=== PATIENT | female | born 1945 | race Caucasian/White ===

== ENCOUNTER 2020-08-27 18:39 | Emergency (ER) | payer OTHER ==
[~2020-08-27] VITALS: Ht 152.4 cm; Wt 57.5 kg
[2020-08-27 18:57] VITALS: BP 135/79
[2020-08-27 19:22] LABS: ABSOLUTE BASOPHILS 0.1 thou/uL (0.0-0.2); ABSOLUTE EOSINOPHILS 0.1 thou/uL (0.0-0.7); ABSOLUTE LYMPHOCYTES 1.6 thou/uL (0.8-5.3); ABSOLUTE MONOCYTES 1.1 thou/uL (0.0-1.2); ABSOLUTE NEUTROPHILS 13.7 thou/uL (1.6-8.1); BASOPHILS 0.6 %; EOSINOPHILS 0.4 %; HEMATOCRIT 32.7 % (37.0-47.0); HEMOGLOBIN 10.5 gm/dL (12.0-15.0); LYMPHOCYTES 9.6 %; MCH 29.8 pg (26.0-34.0); MCHC 32.1 g/dL (28.0-37.0); MCV 92.6 fL (80.0-100.0); MONOCYTES 6.7 %; MPV 8.8 fl. (7.2-11.1); NUCLEATED RBCS 0 /100WBC; PLATELET COUNT* 393 thou/uL (150-400); POLYS 82.7 %; RBC 3.53 mil/uL (4.20-5.00); RDW-CV 14.4 % (10.5-14.5); WBC 16.6 thou/uL (4.0-11.0)
[2020-08-27 19:32] LABS: ANION GAP 7 mmol/L (7-16); BUN 10 mg/dL (7-18); CALCIUM 9.3 mg/dL (8.5-10.1); CHLORIDE 104 mmol/L (98-107); CO2 32 mmol/L (21-32); CREATININE 0.9 mg/dL (0.6-1.3); GLUCOSE 105 mg/dL (70-99); POTASSIUM 3.9 mmol/L (3.5-5.1); SODIUM 143 mmol/L (136-145)
[2020-08-27 19:47] LABS: ALKALINE PHOSPHATASE 99 U/L (46-116); CK-MB MASS < 0.5 ng/mL (<0.5-3.6); NT-PRO BRAIN NAT PEPTIDE 444 pg/mL (<300); SGOT 19 U/L (15-37); SGPT 16 U/L (30-65); TOTAL BILIRUBIN 0.4 mg/dL (<0.1-1.0); TOTAL PROTEIN 7.5 g/dL (6.4-8.2)
[2020-08-27 19:55] LABS: APTT 24.5 Seconds (25.0-31.3); PROTIME 10.7 Seconds (9.20-11.50)
[2020-08-27] MEDS ORDERED: KLOR-CON M2020 MEQ PO (19:58)
[2020-08-27] MEDS ORDERED: COZAAR 25 MG TA25 M1 PO (19:58)
[2020-08-27] MEDS ORDERED: CARTIA XT180 M1 PO (19:59)
[2020-08-27] MEDS ORDERED: FUROSEMIDE 40 M40 MG PO (19:59)
[2020-08-27] MEDS ORDERED: KEPPRA1000 MG PO (20:00)
[2020-08-27] MEDS ORDERED: SERTRALINE HCL100 MG PO (20:00)
[2020-08-27] MEDS ORDERED: PROAIR HFA8.5 GM INH (20:01)
[2020-08-27 20:16] LABS: BE 3.3 mmol/L (-2 to +3); PCO2 46.1 mmHg (35.0-45.0); PO2 83.5 mmHg (75.0-100.0); pH 7.411 (7.340-7.450)
[2020-08-27 20:22] LABS: URINE BILIRUBIN NEGATIVE (Negative); URINE BLOOD NEGATIVE (Negative); URINE CLARITY CLEAR; URINE COLOR YELLOW; URINE GLUCOSE-RANDOM NEGATIVE (Negative); URINE KETONES NEGATIVE (Negative); URINE LEUKOCYTES-REFLEX TRACE (Negative); URINE NITRITE-REFLEX NEGATIVE (Negative); URINE PROTEIN NEGATIVE (Negative); URINE UROBILINOGEN 0.2 E.U./dl (0.2-1.0)
[2020-08-27 20:41] LABS: HYALINE CASTS 4-10 Moderate /LPF (None Seen)
[2020-08-27 20:42] LABS: BACTERIA-REFLEX None Seen /HPF (None Seen); CRYSTALS None Seen /LPF (None Seen); MUCUS None Seen strn/LPF (None Seen); SQUAMOUS 4-10 Moderate /LPF (0-3); URINE RBC None Seen /HPF (0-2); URINE WBC-REFLEX 0-5 Rare /HPF (0-5)
[2020-08-27] MEDS ORDERED: CEFDINIR300 MG PO ×2 (22:15→22:16)
[2020-08-27 22:30] VITALS: BP 139/73
--- NOTE | 2020-08-28 09:17 | EKG ---
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: : 1945 Requested By: Luis Saravia Order Number: [id number] MD: Michael Quiroz Measurements Intervals [place] Rate: 92 P: 69 FL: 153 QRS: -5 QRSD: 112 T: 55 QT: 378 QTc: 468 Interpretive Statements Sinus rhythm Borderline intraventricular conduction delay No previous ECG available for comparison Electronically Signed On 08-28-2020 9:17:26 CDT by Michael Quiroz [email or web address] <ELECTRONICALLY SIGNED> By: Michael Quiroz MD, [facility] [id number] 05 05 Michael Quiroz MD, [facility] /EPI
== END 2020-08-27 22:31 | disposition home or self-care (01) ==
LOC: M.ERS 18:39 → M.TBA-ER 22:06 → M.ERS 22:06
PROVIDERS: Emergency Medicine; Family Medicine
DX: J18.9 Pneumonia, unspecified organism (principal); Z20.822 Contact with and (suspected) exposure to COVID-19; I11.0 Hypertensive heart disease with heart failure; I50.9 Heart failure, unspecified; J44.9 Chronic obstructive pulmonary disease, unspecified; Z88.0 Allergy status to penicillin

== ENCOUNTER 2020-09-19 08:44 | Inpatient (IN) | payer OTHER ==
[~2020-09-19] VITALS: Ht 152.4 cm; Wt 57.2 kg
--- NOTE | ~2020-09-19 | CON ---
[facility] [address] [place] [address] CONSULTATION Name: KEERTHISRIDHAR N Room: [address] IN ..#: [id number] Admission: 09/19/20 Attend Phys: Woody Valdes MD Discharge: Date of : 43 Report #: [id number] THIS REPORT FOR: cc: Tyrone Merlos MD, Matthew D MD Khosla, Parveen K. MD ~ DOC #: [id number] Lázaro Vega MD DATE OF CONSULTATION: 09/20/2020 HISTORY OF PRESENT ILLNESS: This is a 75-year-old female patient who was evaluated by me for seizure. The patient was seen yesterday as well as the patient was seen today. Initially, I was not able to reach the patient's daughter, but subsequently I was able to reach the patient's daughter. The history is that this patient had an aneurysm surgery several years ago. Neither the patient nor the daughter remembers how many years ago was that, but it was a long time ago. The aneurysm had ruptured and she had a seizure. She has been on seizure medications for a long time. Presently, she is on Keppra. Dose has been adjusted. At one time it was 1000 mg p.o. b.i.d. and then they decreased it to 1000 mg in the morning and 750 mg at night and then they increased it back to 1000 mg p.o. b.i.d. Keppra has not caused any side effects. She was seen in [facility] about a year ago for recurrence of any aneurysm and they did the workup and they did not find any reoccurrence. She is having some seizures. Seizures are of about 1 month apart, but during the seizure, she becomes restless. She starts rocking her legs and then she becomes uncontrollable. It does not look like she has any tonic or clonic activity during that time. Keppra has not produced any side effects. She did have some depression at one time, but there has not been any question of pseudoseizure. REVIEW OF SYSTEMS: Positive for aneurysm ruptures in the past. She has a history of CHF, COPD, hypertension, depression. She used to smoke and drink alcohol, but she has stopped doing that according to the daughter. She has poor memory, but she is still able to live at home with the daughter. Somebody is always with her. A 14-point review of system was carried out and she is not complaining of any new eye, ENT, cardiac, respiratory, GI, , musculoskeletal, constitutional dermatological, hematological, psychiatric, throat, allergic symptoms associated with present symptomatology. PAST MEDICAL HISTORY: Positive for seizures and aneurysm rupture. FAMILY HISTORY: Unremarkable. SOCIAL HISTORY: She used to smoke and drink alcohol, [place] [address] CONSULTATION Name: KEERTHISRIDHAR [place] Room: [address]#: [id number] Admission: 09/19/20 Attend Phys: Woody Valdes MD Discharge: Date of : 43 Report #: [id number] one of them now. PHYSICAL EXAMINATION: NEUROLOGIC: The patient's examination indicates she is alert. She is responsive. Her memory is poor, but that is her baseline. She can tell me that she had surgery, but could not tell me the exact date. Cranial nerve examination, I could not tell about the visual field, but otherwise looks unremarkable. She moves symmetrically and the position looks intact. She does not appear to have any cerebellar sign. There is no meningeal sign in this patient. Her hearing and vision looks adequate. She has no thyroid mass. VITAL SIGNS: Blood pressure is 135/75, respirations 16, pulse is 84, temperature is 98.1. CARDIAC: Unremarkable. RESPIRATORY: No respiratory difficulty was noted. DIAGNOSTIC IMAGING: CT shows chronic changes, but no acute changes. Cervical spine shows no fracture or subluxation of the cervical spine. IMPRESSION AND PLAN: It is possible this patient is having some breakthrough seizure. It is very difficult to confirm. Her EEG is pending. We will look at it. My suggestion was to go on Depakote, which will help with behavior problem as well as seizure, but after having a long talk with the patient's daughter, she declined Depakote. She wants me to adjust the dose to 1500 mg p.o. b.i.d. and she understands all the options. We will do that. She will continue to follow up with her neurologist as an outpatient and will defer further workup and evaluation to them. Thank you very much for this referral. More than 50 minutes of time was spent taking care of this patient today and majority were spent counseling and coordinating. Lázaro Vega MD PK/VIS By: [id number] Vega MD /nt
--- NOTE | ~2020-09-19 | EMS ---
[address] [address] EMS Patient Care Report Name: SRIDHAR PENDLETON Room: [place] [address] ADM [place] [facility]#: [id number] Admission: 09/19/20 Attend Phys: Woody Valdes MD Discharge: Date of : 43 Report #: [id number] THIS REPORT FOR: //name// Report Transmitted: 09/19/2020 11:01 EMS Care Summary [facility] Incident [id number] @ 09/19/2020 07:35 Incident Location [address] [place] [address] Patient SRIDHAR PENDLETON Female, 75 Years 1945 Patient Address [id number] [place] [address] Patient History Chronic Obstructive Pulmonary Disease (COPD),Diabetes,Hypertension (HTN),Stroke/CVA, Patient Allergies No known allergies, Patient Medications Potassium, Levetiracetam, Sertraline, Losartan, Diltiazem, Cartia, Chief Complaint "She was shaking on the bed." Disposition Transported No Lights/[place] Dispatch Reason Convulsions/Seizure Transported To [facility] Narrative Dispatch: Med 1 response requested to Aurora Zhang on a female having a seizure. Med 1 copied the call and began our response to the scene. We arrived on scene without incident. [address] [place] [address] EMS Patient Care Report Name: SRIDHAR PENDLETON [place] Room: [place] [address] ADM IN M.R.#: [id number] Admission: 09/19/20 Attend Phys: Woody Valdes MD Discharge: Date of : 43 Report #: [id number] Chief complaint: We found a female sitting up right in a chair. Patient was alert to self but appeared to be postictal. History of present illness: Patient suffers from seizures due to an unknown cause. She takes Keppra for them and has been taking it as prescribed by her DR. Family found the patient on a chair shaking back and fourth which is how her seizures present. Her oxygen saturation dropped and family became concerned. When EMS arrived the patient appeared to be postictal as she was only alert to self. Family advised she is usually fully alert and able to answer them. Family denied any medication changes or increased stress at home. She hasn't been sick recently. Assessment: Alert to self but appeared postictal. Airway open and patent with clear lung sounds, breathing non labored. Able to speak however few words at a time. Skin noted to be pink, warm and dry. Pulse present and regular at the radial size. No outward deformities noted. Patient did not bite her tongue or urinate during seizure. Secondary assessment noted in tab Reason for transport: Patient had a seizure and family would like her evaluated at [facility]. Treatment: ALS assessment, vitals,Oxygen via NC at her normal 3 lpm, ECG showing NS, IV access, transport Summary: Patient was assisted to stand from her chair. She was assisted to the cot to have a seat where she was covered and secured. She was taken to the ambulance and placed inside. Vitals were monitored. IV access obtained. She was continued on her normal oxygen. We transported non emergent. Radio report called in to the ER via med radio. Upon arrival to the ER patient was taken inside and to ER 4 where she was moved while report was given. Med 1 transferred care and cleared to return to service. Initial Vitals @07:48P: 98,BP: 180/90,Pain: 0/10,GCS: 15,Temp: 99.1F,Glucose: 85,SpO2: 100, @08:11P: 88,R: 18,BP: 184/90,Pain: 0/10,GCS: 15,SpO2: 98,Revised Trauma: 12, @08:20P: 86,R: 18,BP: 178/109,Pain: 0/10,GCS: 15,SpO2: 100,Revised Trauma: 12, @08:30P: 86,R: 20,BP: 174/106,Pain: 0/10,GCS: 15,SpO2: 100,Revised Trauma: 12, @08:35P: 85,R: 20,BP: 176/82,Pain: 0/10,GCS: 15,SpO2: 100,Revised Trauma: 12, Assessments @07:55MENTAL:Confused,Person Oriented,SKIN:HEENT:LUNG SOUNDS:ABDOMEN:PELVIS//GI:EXTREMITIES:PULSE:NEURO:@08:23MENTAL:Person Oriented,Event Oriented,Time Oriented,Place Oriented,SKIN:HEENT:[place] [address] EMS Patient Care Report Name: SRIDHAR PENDLETON Room: [address] IN M.R.#: [id number] Admission: 09/19/20 Attend Phys: Woody Valdes MD Discharge: Date of : 43 Report #: [id number] SOUNDS:ABDOMEN:PELVIS//GI:EXTREMITIES:PULSE:NEURO: Impression Seizures Procedures @07:49ALS AssessmentResponse: UnchangedSucceeded@08:00Lactated Ringers 10cc (20 ga) Site: Antecubital-RightResponse: UnchangedSucceeded@08:00Surgical Mask on PatientResponse: Unchanged@08:1112-Lead ECGResponse: UnchangedSucceeded@08:2012-Lead ECGResponse: UnchangedSucceeded Timeline 07:30,Call Received 07:35,Dispatched 07:36,En Route 07:46,On Scene 07:47,At Patient 07:48,BP: 180/90 M,PULSE: 98,RR: R,SPO2: 100 Ox,ETCO2: ,B,PAIN: 0,GCS: 15, 07:49,ALS Assessment,Response: UnchangedSucceeded, 08:00,Lactated Ringers 10cc 20 ga Site: Antecubital-Right,Response: UnchangedSucceeded, 08:00,Surgical Mask on Patient,Response: Unchanged 08:09,Depart Scene 08:11,12-Lead ECG,Response: UnchangedSucceeded, 08:11,BP: 184/90 M,PULSE: 88,RR: 18 R,SPO2: 98 Ox,ETCO2: ,BG: ,PAIN: 0,GCS: 15, 08:20,12-Lead ECG,Response: UnchangedSucceeded, 08:20,BP: 178/109 M,PULSE: 86,RR: 18 R,SPO2: 100 Ox,ETCO2: ,BG: ,PAIN: 0,GCS: 15, 08:30,BP: 174/106 M,PULSE: 86,RR: 20 R,SPO2: 100 Ox,ETCO2: ,BG: ,PAIN: 0,GCS: 15, 08:35,BP: 176/82 M,PULSE: 85,RR: 20 R,SPO2: 100 Ox,ETCO2: ,BG: ,PAIN: 0,GCS: 15, 08:42,At Destination 09:18,Call Closed Disclaimer v1.1 Copyright 2020 [employer] This EMS Care Summary contains data elements from the applicable legal record (which may be displayed differently). It is designed to provide pertinent information for the following purposes: continuity of care, clinical quality, and state data reporting. The complete legal record is available to ED staff and administrators of the receiving hospital in [employer] Patient Tracker. All data is provided "as is."
--- NOTE | ~2020-09-19 | EEG ---
[place] [address] EEG STUDY REPORT Name: SRIDHAR PENDLETON [place] Room: [address]#: [id number] Admission: 09/19/20 Attend Phys: Woody Valdes MD Discharge: 09/21/20 Date of : 43 Report #: [id number] THIS REPORT FOR: cc: Tyrone Merlos MD, Matthew D MD Khosla, Parveen K. MD ~ DOC #: [id number] Lázaro Vega MD DATE OF SERVICE: 09/20/2020 This patient's EEG was done to evaluate for seizure. EEG was done by placing the electrode by standard 10-20 system of electrode placement. Both referential and sequential montages were used for recording. Background activity in this patient's EEG is about 8 Hz and 30 microvolt. It is asymmetrical as expected from the craniotomy, but this is also poorly formed. Photic stimulation is unremarkable. This patient became drowsy and that is associated with bilateral slowing and vertex sharp waves. No spike and slow wave activity was noticed. IMPRESSION: This is an abnormal EEG because it is disorganized and poorly formed. That is a nonspecific abnormality, which can occur with dementia, encephalopathy, effect of psychotropic medications. Clinical correlation is recommended. MD ARIELLA Villagomez/SAIDA By: [id number] Vega MD /maci
[~2020-09-19 08:44] MED LIST: CARTIA XT180 M1 PO; CEFDINIR300 MG PO; COZAAR 25 MG TA25 M1 PO; FUROSEMIDE 40 M40 MG PO; KEPPRA1000 MG PO; KLOR-CON M2020 MEQ PO; PROAIR HFA8.5 GM INH; SERTRALINE HCL100 MG PO
[2020-09-19 08:47] VITALS: BP 132/96
[2020-09-19 09:17] LABS: URINE BILIRUBIN NEGATIVE (Negative); URINE BLOOD NEGATIVE (Negative); URINE CLARITY CLEAR; URINE COLOR YELLOW; URINE GLUCOSE-RANDOM NEGATIVE (Negative); URINE KETONES NEGATIVE (Negative); URINE LEUKOCYTES-REFLEX NEGATIVE (Negative); URINE NITRITE-REFLEX NEGATIVE (Negative); URINE PROTEIN NEGATIVE (Negative); URINE SPECIFIC GRAVITY 1.015 (1.005-1.030); URINE UROBILINOGEN 0.2 E.U./dl (0.2-1.0)
[2020-09-19 09:54] LABS: ABSOLUTE BASOPHILS 0.1 thou/uL (0.0-0.2); ABSOLUTE EOSINOPHILS 0.4 thou/uL (0.0-0.7); ABSOLUTE LYMPHOCYTES 1.2 thou/uL (0.8-5.3); ABSOLUTE NEUTROPHILS 5.2 thou/uL (1.6-8.1); EOSINOPHILS 5.1 %; HEMATOCRIT 31.8 % (37.0-47.0); HEMOGLOBIN 10.1 gm/dL (12.0-15.0); LYMPHOCYTES 15.3 %; MCH 29.4 pg (26.0-34.0); MCHC 31.6 g/dL (28.0-37.0); MCV 92.9 fL (80.0-100.0); MONOCYTES 12.7 %; NUCLEATED RBCS 0 /100WBC; PLATELET COUNT* 230 thou/uL (150-400); POLYS 65.9 %; RBC 3.42 mil/uL (4.20-5.00); RDW-CV 14.5 % (10.5-14.5); WBC 7.8 thou/uL (4.0-11.0)
[2020-09-19 10:03] LABS: CALCIUM 9.2 mg/dL (8.5-10.1); CREATININE 0.8 mg/dL (0.6-1.3); POTASSIUM 4.1 mmol/L (3.5-5.1)
[2020-09-19 10:07] LABS: ALBUMIN 3.2 g/dL (3.4-5.0); TOTAL BILIRUBIN 0.3 mg/dL (<0.1-1.0); TOTAL PROTEIN 7.1 g/dL (6.4-8.2)
--- NOTE | 2020-09-19 12:47 | EKG ---
[place] [address] ELECTROCARDIOGRAM REPORT Name: SRIDHAR PENDLETON Room: [place] [address] ADM IN M.R.#: [id number] Admission: 09/19/20 Attend Phys: Woody Valdes, Discharge: Date of : 43 Date of Service: 09/19/20 0852 Report #: [id number] THIS REPORT FOR: //name// [facility] ED Test Date: 2020-09-19 Test Time: 08:52:23 Pat Name: SRIDHAR PENDLETON Department: Room: [facility] Gender: F Test Preparation Tutor: GEOVANY : 1945 Requested By: Luis Saravia Order Number: [id number] MD: Tino Bourgeois Measurements Intervals [place] Rate: 89 P: 78 PA: 154 QRS: 74 QRSD: 117 T: 46 QT: 373 QTc: 454 Interpretive Statements Sinus rhythm Nonspecific intraventricular conduction delay Borderline low voltage, extremity leads Compared to ECG 08/27/2020 19:06:45 No significant changes Electronically Signed On 09-19-2020 12:47:41 CDT by Tino Bourgeois [email or web address] <ELECTRONICALLY SIGNED> By: Tino Bourgeois MD, [facility] 09/19/20 1247 0852 0852 Tino Bourgeois MD, [facility] /EPI
[2020-09-19 14:30] VITALS: BP 143/80
[2020-09-19 15:00] VITALS: BP 140/75
[2020-09-19 16:58] VITALS: BP 147/81
[2020-09-19 18:04] VITALS: BP 180/67
[2020-09-19 19:24] VITALS: BP 145/81
[2020-09-20 08:40] VITALS: BP 135/75
[2020-09-20 16:00] VITALS: BP 131/87
[2020-09-20 19:48] VITALS: BP 130/82
[2020-09-21 05:13] LABS: CALCIUM 9.2 mg/dL (8.5-10.1); CREATININE 0.8 mg/dL (0.6-1.3); MAGNESIUM 2.3 mg/dL (1.8-2.4); POTASSIUM 3.5 mmol/L (3.5-5.1)
[2020-09-21 07:45] VITALS: BP 133/67
[2020-09-21] MEDS ORDERED: KEPPRA 500 MG500 M1 PO (11:27)
[2020-09-21 12:08] VITALS: BP 133/67
[2020-09-21 12:50] VITALS: BP 133/67
[2020-09-21 15:37] VITALS: BP 124/69
[2020-09-21 16:34] VITALS: BP 133/67
[2020-09-21 17:53] VITALS: BP 133/67
== END 2020-09-21 17:50 | disposition home health service (06) | DRG 101 ==
LOC: M.ERS 08:44 → M.ORTHSURG 11:39 → M.TBA-ER 11:39 → M.ORTHSURG 14:33
PROVIDERS: Family Medicine; ADMIT Internal Medicine; ATTEND Internal Medicine
DX: G40.909 Epilepsy, unspecified, not intractable, without status epilepticus (principal); Z20.822 Contact with and (suspected) exposure to COVID-19; J44.9 Chronic obstructive pulmonary disease, unspecified; I50.9 Heart failure, unspecified; F32.9 Major depressive disorder, single episode, unspecified; I11.0 Hypertensive heart disease with heart failure; D64.9 Anemia, unspecified; E88.09 Other disorders of plasma-protein metabolism, not elsewhere classified; Z79.899 Other long term (current) drug therapy; Z79.51 Long term (current) use of inhaled steroids

== ENCOUNTER 2020-10-22 09:14 | Inpatient (IN) | payer OTHER ==
[~2020-10-22] VITALS: Ht 152.4 cm; Wt 52.2 kg
--- NOTE | ~2020-10-22 | EMS ---
[place] [address] EMS Patient Care Report Name: OBDULIA PENDLETON Room: [facility]#: [id number] Admission: 10/22/20 Attend Phys: Discharge: Date of : 43 Report #: [id number] THIS REPORT FOR: //name// Report Transmitted: 10/22/2020 10:38 EMS Care Summary [facility] Incident [id number] @ 10/22/2020 08:09 Incident Location [address] [place] [address] Patient OBDULIA PENDLETON Female, 75 Years 1945 Patient Address [address] [place] [address] Patient History Asthma,TIA, Patient Allergies Penicillin allergy, Patient Medications Albuterol, Chief Complaint Shortness of Breath Disposition Transported No Lights/[place] Dispatch Reason Breathing Problem Transported To [facility] Narrative Dispatch: [facility] was dispatched to a local address for a patient who was having difficulty breathing. [facility] responded from the station and [place] [address] EMS Patient Care Report Name: OBDULIA PENDLETON Room: [facility]#: [id number] Admission: 10/22/20 Attend Phys: Discharge: Date of : 43 Report #: [id number] Chief Complaint: Upon arrival to the patient, (Obdulia De Leon) she was found standing in the living room. Obdulia stated she was having trouble breathing, and had audible wheezing lung sounds. No injuries were noted. History of Present Illness: Obdulia advised that over the last couple days she had increased difficulty breathing. She stated that she has had this problem happen before, and it is typically her asthma that gets worse over a few days. Obdulia stated that she woke up this morning and the breathing was the worst it had been over the last couple days. Obdulia stated that she had not taken her albuterol breathing treatment this morning, and that she just felt like she could not get a deep breath in. Assessment: Primary Assessment - Obdulia had a patent airway, but her respiratory effort was noted to be labored with audible wheezing lung sounds. Her skin was pink, warm, and dry. Radial pulses were present. Secondary Assessment - See assessment section for further information. Reason For Transport: Obdulia required further treatment and monitoring at the hospital. Treatments: Assessment was performed. Vital signs were obtained. Albuterol and Atrovent nebulizer treatment was administered as documented in the flowchart of this report. 5-Lead and 12-Lead EKGs were obtained showing a sinus rhythm without ectopy or elevation. IV access was administered as documented in the flowchart of this report. Solu-Medrol was administered as documented in the flowchart of this report. Summary of Call: Obdulia was transferred to the cot and all seat belts were applied. She was taken to the ambulance and loaded without incident. Non-emergency transport began. During transport, Obdulia's respiratory effort was significantly improved and the wheezing significantly diminished. No other changes in patient condition were noted. Report was called to the receiving hospital. Upon arrival to the [facility], Obdulia was taken into the hospital room and transferred to the bed. Report was given to the receiving staff, signatures were obtained, and patient care was transferred. Initial Vitals @08:40P: 102,R: 21,BP: 169/73,Pain: 0/10,GCS: 15,Glucose: 105,EtCO2: 44,SpO2: [place] [address] EMS Patient Care Report Name: OBDULIA PENDLETON Room: [facility]#: [id number] Admission: 10/22/20 Attend Phys: Discharge: Date of : 43 Report #: [id number],Revised Trauma: 12, @08:55P: 100,R: 20,BP: 172/99,GCS: 15,EtCO2: 47,SpO2: 99,Revised Trauma: 12, @09:10P: 101,R: 22,BP: 174/96,GCS: 15,EtCO2: 40,SpO2: 97,Revised Trauma: 12, @09:25P: 103,R: 18,BP: 168/90,GCS: 15,EtCO2: 39,SpO2: 94,Revised Trauma: 12, @08:25P: 100,R: 22,BP: 168/90,Pain: 0/10,GCS: 15,SpO2: 89,Revised Trauma: 12, Assessments @08:25MENTAL:Time Oriented,Person Oriented,Place Oriented,Event Oriented,SKIN:HEENT:Eyes: Left Pupil: 4-mm,Eyes: Right Pupil: 4-mm,LUNG SOUNDS:ABDOMEN:PELVIS//GI:EXTREMITIES:Capillary Refill: Right Upper: < 2 Sec,PULSE:Radial: 2+ Normal,NEURO:@08:25MENTAL:Person Oriented,Event Oriented,Place Oriented,Time Oriented,SKIN:HEENT:LUNG SOUNDS:ABDOMEN:PELVIS//GI:EXTREMITIES:PULSE:NEURO: Impression Asthma Procedures @08:25ALS AssessmentResponse: UnchangedSucceeded@08:27Albuterol - 2.5 Milligrams (mg) - NebulizedResponse: Improved@08:27Atrovent - 0.5 Milligrams (mg) - NebulizedResponse: Improved@08:30Normal Saline (.9% NaCl) 10cc (20 ga) Site: Antecubital-RightResponse: UnchangedSucceeded@08:46Solu-Medrol - 125 Milligrams (mg) - Intravenous (IV)Response: Improved@08:27Oxygen FlowRate: 8 Device: Nebulizer Response: ImprovedSucceeded@08:35Oxygen FlowRate: 2 Device: CO2 Nasal Cannula Response: ImprovedSucceeded Timeline 08:07,Call Received 08:09,Dispatched 08:11,En Route 08:22,On Scene 08:24,At Patient 08:25,ALS Assessment,Response: UnchangedSucceeded, 08:25,BP: 168/90 M,PULSE: 100,RR: 22 R,SPO2: 89 Ox,ETCO2: ,BG: ,PAIN: 0,GCS: 15, 08:27,Albuterol - 2.5 Milligrams (mg) - Nebulized,Response: Improved 08:27,Atrovent - 0.5 Milligrams (mg) - Nebulized,Response: Improved 08:27,Oxygen FlowRate: 8 Device: Nebulizer Response: ImprovedSucceeded, 08:30,Normal Saline (.9% NaCl) 10cc 20 ga Site: Antecubital-Right,Response: UnchangedSucceeded, 08:35,Oxygen FlowRate: 2 Device: CO2 Nasal Cannula Response: ImprovedSucceeded, 08:40,BP: 169/73 M,PULSE: 102,RR: 21 R,SPO2: 99 Ox,ETCO2: 44 ,B,PAIN: 0,GCS: 15, 08:46,Solu-Medrol - 125 Milligrams (mg) - Intravenous (IV),Response: Improved 08:55,BP: 172/99 M,PULSE: 100,RR: 20 R,SPO2: 99 Ox,ETCO2: 47 ,BG: ,PAIN: ,GCS: 15, [place] [address] EMS Patient Care Report Name: OBDULIA PENDLETON [place] Room: [facility]#: [id number] Admission: 10/22/20 Attend Phys: Discharge: Date of : 43 Report #: [id number] 08:57,Depart Scene 09:10,BP: 174/96 M,PULSE: 101,RR: 22 R,SPO2: 97 Ox,ETCO2: 40 ,BG: ,PAIN: ,GCS: 15, 09:25,BP: 168/90 M,PULSE: 103,RR: 18 R,SPO2: 94 Ox,ETCO2: 39 ,BG: ,PAIN: ,GCS: 15, 09:39,At Destination 10:23,Call Closed Disclaimer v1.1 Copyright 2020 [employer] This EMS Care Summary contains data elements from the applicable legal record (which may be displayed differently). It is designed to provide pertinent information for the following purposes: continuity of care, clinical quality, and state data reporting. The complete legal record is available to ED staff and administrators of the receiving hospital in [employer]'s Patient Tracker. All data is provided "as is."
--- NOTE | ~2020-10-22 | PROC ---
[address] [address] PROCEDURE REPORT Name: SRIDHAR PENDLETON Room: [address] IN M.R.#: [id number] Admission: 10/22/20 Attend Phys: Scot Turner MD Discharge: 11/01/20 Date of : 43 Report #: [id number] THIS REPORT FOR: cc: Tyrone Merlos MD, Matthew D MD [facility],Medical Records Staff ~ For GI report, please see the Provation report in Perceptive 7 content. By: 1012Medical Records Staff [facility] /MANUEL
[~2020-10-22 09:14] MED LIST changes: +KEPPRA 500 MG500 M1 PO
[2020-10-22 09:20] VITALS: BP 163/93
[2020-10-22 10:26] LABS: ABSOLUTE EOSINOPHILS 0.5 thou/uL (0.0-0.7); ABSOLUTE LYMPHOCYTES 1.3 thou/uL (0.8-5.3); ABSOLUTE MONOCYTES 0.6 thou/uL (0.0-1.2); ABSOLUTE NEUTROPHILS 5.5 thou/uL (1.6-8.1); BASOPHILS 0.6 %; EOSINOPHILS 5.8 %; HEMATOCRIT 32.5 % (37.0-47.0); HEMOGLOBIN 10.5 gm/dL (12.0-15.0); LYMPHOCYTES 16.7 %; MCH 29.5 pg (26.0-34.0); MCHC 32.4 g/dL (28.0-37.0); MCV 91.1 fL (80.0-100.0); MPV 9.6 fl. (7.2-11.1); NUCLEATED RBCS 0 /100WBC; PLATELET COUNT* 308 thou/uL (150-400); POLYS 69.9 %; RBC 3.57 mil/uL (4.20-5.00); RDW-CV 14.2 % (10.5-14.5); WBC 7.9 thou/uL (4.0-11.0)
[2020-10-22 10:35] LABS: CALCIUM 8.8 mg/dL (8.5-10.1); CREATININE 0.8 mg/dL (0.6-1.3); POTASSIUM 3.9 mmol/L (3.5-5.1)
[2020-10-22 10:45] LABS: ALBUMIN 3.6 g/dL (3.4-5.0); TOTAL BILIRUBIN 0.2 mg/dL (<0.1-1.0); TOTAL PROTEIN 7.9 g/dL (6.4-8.2)
[2020-10-22 13:52] VITALS: BP 148/85
[2020-10-22 14:15] VITALS: BP 132/77
[2020-10-22 19:50] VITALS: BP 142/77
[2020-10-23 01:10] VITALS: BP 137/86
[2020-10-23 05:16] LABS: ABSOLUTE LYMPHOCYTES 1.3 thou/uL (0.8-5.3); ABSOLUTE MONOCYTES 0.7 thou/uL (0.0-1.2); ABSOLUTE NEUTROPHILS 2.9 thou/uL (1.6-8.1); BASOPHILS 0.2 %; HEMATOCRIT 33.2 % (37.0-47.0); HEMOGLOBIN 10.9 gm/dL (12.0-15.0); LYMPHOCYTES 25.7 %; MCH 29.4 pg (26.0-34.0); MCHC 32.7 g/dL (28.0-37.0); MCV 89.9 fL (80.0-100.0); MONOCYTES 14.8 %; MPV 9.1 fl. (7.2-11.1); NUCLEATED RBCS 0 /100WBC; PLATELET COUNT* 304 thou/uL (150-400); POLYS 59.3 %; RBC 3.69 mil/uL (4.20-5.00); RDW-CV 14.5 % (10.5-14.5); WBC 4.9 thou/uL (4.0-11.0)
[2020-10-23 05:35] LABS: CALCIUM 9.1 mg/dL (8.5-10.1); POTASSIUM 3.8 mmol/L (3.5-5.1)
[2020-10-23 05:49] VITALS: BP 128/75
[2020-10-23 08:13] VITALS: BP 111/92
[2020-10-23] MEDS ORDERED: IPRAT-ALBUT 0.5-3 ML INH (10:59)
[2020-10-23] MEDS ORDERED: STIOLTO RESPIMAT4 GM INH (11:02)
[2020-10-23] MEDS ORDERED: FLONASE 0.05%50 MCG NASAL (11:14)
[2020-10-23] MEDS ORDERED: SUPER THERAVIT1 EACH PO (11:24)
[2020-10-23] MEDS ORDERED: ADVIL200 M1 PO (11:25)
[2020-10-23 11:51] VITALS: BP 134/72
--- NOTE | 2020-10-23 12:01 | EKG ---
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: : 1945 Requested By: Jesus Stapleton Order Number: [id number] MD: Ravinder Whelan Measurements Intervals [place] Rate: 102 P: 79 DC: 163 QRS: 73 QRSD: 109 T: 42 QT: 362 QTc: 472 Interpretive Statements Sinus tachycardia Compared to ECG 09/19/2020 08:52:23 Sinus rhythm no longer present Intraventricular conduction delay no longer present Electronically Signed On 10-23-2020 12:01:20 CDT by Ravinder hWelan [email or web address] <ELECTRONICALLY SIGNED> By: Ravinder Whelan MD, [facility] 10/23/20 1201 2 2 Ravinder Whelan MD, [facility] /EPI
--- NOTE | 2020-10-23 15:43 | 2DMMODE ---
[place] [address] 2 D/M-MODE ECHOCARDIOGRAM Name: SRIDHAR PENDLETON Room: [address] IN [facility]#: [id number] Admission: 10/22/20 Attend Phys: Scot Turner, Discharge: Date of : 43 Date of Service: 10/23/20 1543 Report #: [id number] THIS REPORT FOR: cc: Tyrone Merlos MD, Matthew D MD Liston, Michael J. MD [facility] ~ APPROVED REPORT Study performed: 10/23/2020 13:53:27 EXAM: Comprehensive 2D, Doppler, and color-flow Echocardiogram Patient Location: In-Patient Room #: [facility] Status: routine BSA: 1.48 HR: 96 bpm BP: 134/72 mmHg Rhythm: NSR Other Information Study Quality: Good Indications Congestive Heart Failure 2D Dimensions IVSd: 9.22 (7-11mm) LVOT Diam: 19.22 (18-24mm) LVDd: 43.07 mm PWd: 8.05 (7-11mm) Ascending Ao: 31.75 (22-36mm) LVDs: 28.52 (25-40mm) Aortic Root: 32.37 mm Volumes Left Atrial Volume (Systole) LA ESV Index: 34.20 mL/m2 Aortic Valve AoV Peak Ced.: 1.79 m/s AO Peak Gr.: 12.78 mmHg LVOT Max P.46 mmHg AO Mean Gr.: 6.61 mmHg LVOT Mean P.40 mmHg LVOT Max V: 1.27 m/s AO V2 VTI: 31.79 cm LVOT Mean V: 0.85 m/s STEPHANIA (VTI): 2.32 cm2 LVOT V1 VTI: 25.44 [place] [address] 2 D/M-MODE ECHOCARDIOGRAM Name: SRIDHAR PENDLETON Room: [address] IN ..#: [id number] Admission: 10/22/20 Attend Phys: Scot Turner, Discharge: Date of : 43 Date of Service: 10/23/20 1543 Report #: [id number] Mitral Valve E/A Ratio: 0.69 MV Decel. Time: 128.46 ms MV E Max Ced.: 0.87 m/s MV PHT: 37.25 ms MVA (PHT): 5.91 cm2 TDI E/Lateral E': 9.67 E/Medial E': 9.67 Medial E' Ced.: 0.09 m/s Lateral E' Ced.: 0.09 m/s Pulmonary Valve PV Peak Ced.: 1.32 m/s PV Peak Gr.: 6.94 mmHg Tricuspid Valve RAP Estimate: 5.00 mmHg TR Peak Gr.: 29.45 mmHg RVSP: 34.00 mmHg PA Pressure: 34.00 mmHg Left Ventricle The left ventricle is normal size. There is normal LV segmental wall motion. There is normal left ventricular wall thickness. Left ventricular systolic function is normal. LVEF is 55-60%. Grade I - abnormal relaxation pattern. Right Ventricle The right ventricle is normal size. The right ventricular systolic function is normal. Atria The left atrium size is normal. The right atrium size is normal. Aortic Valve The aortic valve is normal in structure. No aortic regurgitation is present. There is no aortic valvular stenosis. Mitral Valve The mitral valve is normal in structure. There is no mitral valve regurgitation noted. No evidence of mitral valve stenosis. Tricuspid Valve The tricuspid valve is normal in structure. Mild tricuspid regurgitation. [place] [address] 2 D/M-MODE ECHOCARDIOGRAM Name: KEERTHISRIDHAR N Room: [address]#: [id number] Admission: 10/22/20 Attend Phys: Scot Turner, Discharge: Date of : 43 Date of Service: 10/23/20 1543 Report #: [id number] Pulmonic Valve The pulmonary valve is normal in structure. Mild pulmonic regurgitation. Great Vessels The aortic root is normal in size. IVC is normal in size and collapses >50% with inspiration. Pericardium There is no pericardial effusion. <Conclusion> The left ventricle is normal size. There is normal left ventricular wall thickness. Left ventricular systolic function is normal. LVEF is 55-60%. Grade I - abnormal relaxation pattern. Mild tricuspid regurgitation. Mild pulmonary hypertension. IVC is normal in size and collapses >50% with inspiration. <ELECTRONICALLY SIGNED> By: Ravinder Whelan MD, FACC 10/23/20 1543 1543 1543 Ravinder Whelan MD, FACC /INF
[2020-10-23 16:34] VITALS: BP 134/78
[2020-10-23 21:00] VITALS: BP 147/55
[2020-10-24] VITALS (7 sets, daily range): BP systolic 95–157; BP diastolic 66–86
[2020-10-24 04:13] LABS: HEMATOCRIT 30.5 % (37.0-47.0); HEMOGLOBIN 10.2 gm/dL (12.0-15.0); MCH 29.8 pg (26.0-34.0); MCHC 33.3 g/dL (28.0-37.0); MCV 89.4 fL (80.0-100.0); MPV 9.1 fl. (7.2-11.1); RBC 3.41 mil/uL (4.20-5.00); RDW-CV 14.4 % (10.5-14.5); WBC 9.5 thou/uL (4.0-11.0)
[2020-10-24 04:33] LABS: CALCIUM 9.2 mg/dL (8.5-10.1); CREATININE 0.8 mg/dL (0.6-1.3); POTASSIUM 4.1 mmol/L (3.5-5.1)
[2020-10-24 11:06] LABS: BE 7.6 mmol/L (-2 to +3); PO2 75.5 mmHg (75.0-100.0); pH 7.373 (7.340-7.450)
[2020-10-24 11:21] LABS: PCO2 60.8 mmHg (35.0-45.0)
[2020-10-25 04:12] LABS: HEMATOCRIT 32.4 % (37.0-47.0); HEMOGLOBIN 10.5 gm/dL (12.0-15.0); MCH 29.2 pg (26.0-34.0); MCHC 32.5 g/dL (28.0-37.0); MCV 89.9 fL (80.0-100.0); MPV 10.3 fl. (7.2-11.1); RBC 3.6 mil/uL (4.20-5.00); RDW-CV 14.5 % (10.5-14.5); WBC 9.6 thou/uL (4.0-11.0)
[2020-10-25 04:25] LABS: CALCIUM 8.9 mg/dL (8.5-10.1); CREATININE 0.8 mg/dL (0.6-1.3)
[2020-10-25 05:08] VITALS: BP 158/94
[2020-10-25 08:51] VITALS: BP 158/94
[2020-10-25 09:00] VITALS: BP 127/81
[2020-10-25 12:41] VITALS: BP 148/90
[2020-10-25 19:26] LABS: APTT 25.1 Seconds (25.0-31.3); PROTIME 10.3 Seconds (9.20-11.50)
[2020-10-25 19:50] VITALS: BP 142/78
[2020-10-25 23:34] VITALS: BP 138/88
[2020-10-26 03:39] VITALS: BP 140/73
[2020-10-26 05:09] LABS: HEMATOCRIT 29.7 % (37.0-47.0); HEMOGLOBIN 9.8 gm/dL (12.0-15.0); MCH 29.3 pg (26.0-34.0); MCHC 32.9 g/dL (28.0-37.0); MCV 89.2 fL (80.0-100.0); MPV 9.5 fl. (7.2-11.1); NUCLEATED RBCS 0 /100WBC; PLATELET COUNT* 266 thou/uL (150-400); RBC 3.33 mil/uL (4.20-5.00); RDW-CV 14.4 % (10.5-14.5); WBC 6.1 thou/uL (4.0-11.0)
[2020-10-26 05:26] LABS: ALKALINE PHOSPHATASE 84 U/L (46-116); ANION GAP < 0 mmol/L (7-16); BUN 20 mg/dL (7-18); CALCIUM 8.7 mg/dL (8.5-10.1); CHLORIDE 100 mmol/L (98-107); CO2 41 mmol/L (21-32); CREATININE 0.8 mg/dL (0.6-1.3); GLUCOSE 87 mg/dL (70-99); POTASSIUM 3.7 mmol/L (3.5-5.1); SGOT 22 U/L (15-37); SGPT 28 U/L (30-65); SODIUM 139 mmol/L (136-145); TOTAL BILIRUBIN 0.2 mg/dL (<0.1-1.0); TOTAL PROTEIN 6.9 g/dL (6.4-8.2)
[2020-10-26 06:10] LABS: ABSOLUTE LYMPHOCYTES 1.6 thou/uL (0.8-5.3); ABSOLUTE MONOCYTES 1.4 thou/uL (0.0-1.2); ABSOLUTE NEUTROPHILS 3.1 thou/uL (1.6-8.1); MYELOCYTES 1 %
[2020-10-26 06:11] LABS: ANISOCYTOSIS 1+; OVALOCYTES 1+; PLATELET ESTIMATE ADEQUATE; POIKILOCYTOSIS 1+
[2020-10-26 09:00] VITALS: BP 136/78
[2020-10-26 12:00] VITALS: BP 128/67
[2020-10-26 16:24] VITALS: BP 133/84
[2020-10-26 20:00] VITALS: BP 163/82
[2020-10-26 23:58] VITALS: BP 143/82
[2020-10-27 04:37] VITALS: BP 142/86
[2020-10-27 04:42] LABS: CALCIUM 9.1 mg/dL (8.5-10.1); CREATININE 0.8 mg/dL (0.6-1.3)
[2020-10-27 04:55] LABS: ABSOLUTE LYMPHOCYTES 1.3 thou/uL (0.8-5.3); ABSOLUTE MONOCYTES 0.7 thou/uL (0.0-1.2); ABSOLUTE NEUTROPHILS 5.1 thou/uL (1.6-8.1); BASOPHILS 0.4 %; HEMATOCRIT 31.8 % (37.0-47.0); HEMOGLOBIN 10.5 gm/dL (12.0-15.0); LYMPHOCYTES 18.3 %; MCH 29.3 pg (26.0-34.0); MCHC 32.9 g/dL (28.0-37.0); MCV 89.1 fL (80.0-100.0); MONOCYTES 9.8 %; MPV 9.9 fl. (7.2-11.1); NUCLEATED RBCS 0 /100WBC; PLATELET COUNT* 280 thou/uL (150-400); POLYS 71.5 %; RBC 3.57 mil/uL (4.20-5.00); WBC 7.1 thou/uL (4.0-11.0)
[2020-10-27 08:00] VITALS: BP 172/101
[2020-10-27 12:00] VITALS: BP 145/92
[2020-10-27 19:29] VITALS: BP 165/79
[2020-10-27 20:00] VITALS: BP 140/87
[2020-10-28] VITALS (7 sets, daily range): BP systolic 115–175; BP diastolic 56–102
[2020-10-28 06:07] LABS: ABSOLUTE LYMPHOCYTES 1.1 thou/uL (0.8-5.3); ABSOLUTE MONOCYTES 0.6 thou/uL (0.0-1.2); ABSOLUTE NEUTROPHILS 7.7 thou/uL (1.6-8.1); BASOPHILS 0.4 %; HEMATOCRIT 34.1 % (37.0-47.0); HEMOGLOBIN 11.2 gm/dL (12.0-15.0); LYMPHOCYTES 11.2 %; MCH 29.1 pg (26.0-34.0); MCHC 32.9 g/dL (28.0-37.0); MCV 88.5 fL (80.0-100.0); MONOCYTES 6.8 %; MPV 9.7 fl. (7.2-11.1); NUCLEATED RBCS 0 /100WBC; PLATELET COUNT* 302 thou/uL (150-400); POLYS 81.6 %; RBC 3.85 mil/uL (4.20-5.00); RDW-CV 14.2 % (10.5-14.5); WBC 9.4 thou/uL (4.0-11.0)
[2020-10-28 06:13] LABS: CALCIUM 9.4 mg/dL (8.5-10.1); CREATININE 0.7 mg/dL (0.6-1.3); POTASSIUM 4.3 mmol/L (3.5-5.1)
[2020-10-29] VITALS (21 sets, daily range): BP systolic 84–129; BP diastolic 45–74
[2020-10-29 05:14] LABS: ABSOLUTE LYMPHOCYTES 0.9 thou/uL (0.8-5.3); ABSOLUTE NEUTROPHILS 7.8 thou/uL (1.6-8.1); BASOPHILS 0.3 %; HEMATOCRIT 30.2 % (37.0-47.0); HEMOGLOBIN 10.1 gm/dL (12.0-15.0); LYMPHOCYTES 9.2 %; MCH 29.2 pg (26.0-34.0); MCHC 33.4 g/dL (28.0-37.0); MCV 87.6 fL (80.0-100.0); MONOCYTES 10.6 %; NUCLEATED RBCS 0 /100WBC; PLATELET COUNT* 270 thou/uL (150-400); POLYS 79.9 %; RBC 3.45 mil/uL (4.20-5.00); RDW-CV 14.4 % (10.5-14.5); WBC 9.7 thou/uL (4.0-11.0)
[2020-10-29 05:42] LABS: ALBUMIN 2.8 g/dL (3.4-5.0); ALKALINE PHOSPHATASE 79 U/L (46-116); ANION GAP 1 mmol/L (7-16); BUN 20 mg/dL (7-18); CALCIUM 8.5 mg/dL (8.5-10.1); CHLORIDE 98 mmol/L (98-107); CO2 38 mmol/L (21-32); CREATININE 0.9 mg/dL (0.6-1.3); GLUCOSE 110 mg/dL (70-99); MAGNESIUM 2.3 mg/dL (1.8-2.4); SGOT 22 U/L (15-37); SGPT 30 U/L (30-65); SODIUM 137 mmol/L (136-145); TOTAL BILIRUBIN < 0.1 mg/dL (<0.1-1.0); TOTAL PROTEIN 6.1 g/dL (6.4-8.2)
[2020-10-29 07:27] LABS: BE 6.9 mmol/L (-2 to +3); PO2 79.3 mmHg (75.0-100.0); pH 7.419 (7.340-7.450)
[2020-10-29 07:29] LABS: PCO2 51.5 mmHg (35.0-45.0)
--- NOTE | 2020-10-29 13:59 | EKG ---
[place] [address] ELECTROCARDIOGRAM REPORT Name: SRIDHAR PENDLETON Room: [address] IN .R.#: [id number] Admission: 10/22/20 Attend Phys: Scot Turner, Discharge: Date of : 43 Date of Service: 10/29/20617 Report #: [id number] THIS REPORT FOR: //name// [facility] Test Date: 2020-10-29 Test Time: 06:18:08 Pat Name: SRIDHRA SHETHMIGNON Department: Room: [address] Gender: F [employer]: PASCALE : 1945 Requested By: Scot Turner Order Number: [id number] Reading MD: Michael Quiroz Measurements Intervals [place] Rate: 134 P: 79 CA: 125 QRS: 185 QRSD: 128 T: 37 QT: 311 QTc: 465 Interpretive Statements Sinus tachycardia Nonspecific intraventricular conduction delay Possible lateral septal scar Artifact in lead(s) II,III,aVR,aVL,aVF and baseline wander in lead(s) I,II,aVR,aVL,aVF,V1,V2,V3,V4,V6 Compared to ECG 10/22/2020 09:23:1 Intraventricular conduction delay persists Artifact is noted Electronically Signed On 10-29-2020 13:59:20 CDT by Michael Quiroz [email or web address] <ELECTRONICALLY SIGNED> By: Michael Quiroz MD, [facility] 10/29/20 1359 7 7 Michael Quiroz MD, [facility] /EPI
--- NOTE | 2020-10-29 15:22 | CON ---
[address] [address] CONSULTATION Name: KEERTHISRIDHAR N Room: [address] IN M.R.#: [id number] Admission: 10/22/20 Attend Phys: Scot Turner MD Discharge: Date of : 43 Report #: [id number] THIS REPORT FOR: cc: Tyrone Merlos MD, Matthew D MD Pervez,Nimesh LEAL ~ DOC #: [id number] Nimesh Gomez MD DATE OF CONSULTATION: 10/25/2020 REQUESTING PHYSICIAN: Dr. Scot Turner. INDICATION FOR CONSULTATION: Acute on chronic hypercarbic respiratory failure with increasing oxygen needs. HISTORY OF PRESENT ILLNESS: This is a 75-year-old female with past medical history includes a history of COPD. The patient uses oxygen at home, has not been on a CPAP or BiPAP at home. At this time, the patient was initially admitted on 10/22, presentation was with increase in shortness of breath. The patient has also had a cough, only clear sputum. No chest pain, does not have upper respiratory complaints. No increase in swelling of lower extremities and no calf pain. She has had disturbed sleep at night. Recently, she says normally she sleeps well, but still has daytime sleepiness. The patient reports that since compared with when she came into the hospital, she is feeling better; however, compared with yesterday, there has been an increase in oxygen needs were down to 3 liters nasal cannula yesterday, oxygen needs have increased again to 6 liters now. REVIEW OF SYSTEMS: The patient answers to the negative for 12 questions for review of systems, except as mentioned above. PAST MEDICAL HISTORY: COPD, on long-term oxygen, usually at night, so that she has also been using it during the day. Recently, hypertension, depression, seizures. There is recent echo, which shows a normal left ventricular ejection fraction without elevation in right heart pressures. SOCIAL HISTORY: An extensive history of smoking, has discontinued. No known history of heavy alcohol use or illegal drug use. CURRENT MEDICATIONS: List in [employer] reviewed. HOME MEDICATIONS: List [place] [employer] [address] CONSULTATION Name: SRIDHAR PENDLETON Room: [address]#: [id number] Admission: 10/22/20 Attend Phys: Scot Turner MD Discharge: Date of : 43 Report #: [id number] ALLERGIES: SHE IS REPORTED TO BE ALLERGIC TO PENICILLIN; however, she tolerates cephalosporins without problems. FAMILY HISTORY: The patient's family is reported not to be vaccinated for COVID-19; however, it is reported that other families members in the past have had COVID and therefore decided not to get vaccinated. PHYSICAL EXAMINATION: GENERAL: She is alert, awake and oriented. She is tachycardic. VITAL SIGNS: Heart rate is 110, blood pressure 148/93, saturating 91-92%. She is on 6 liters nasal cannula. Respiratory rate was in the low 20s, afebrile with a temperature of 36.9. HEENT: Normocephalic and atraumatic. Pupils are equal and reactive. There is no throat erythema, narrow airway, or Mallampati 3. NECK: Does not show raised JVP, asymmetry, mass or lymph nodes. CHEST: Symmetrical expansion on inspection and palpation. On auscultation, breath sounds are decreased. Expirations are prolonged. There are significant expiratory wheezes bilaterally. HEART: Regular. There is no murmur. ABDOMEN: Soft and nontender. LOWER EXTREMITIES: Show no edema. There is no calf tenderness. SKIN: Dry and intact. NEUROLOGIC: Moves all extremities bilaterally equally and spontaneously with no focal deficit identified. LABORATORY DATA: The patient's arterial blood gas from yesterday, which shows acute on chronic hypercarbic respiratory failure in [facility] reviewed. Lab work in [facility] also reviewed. The patient has had a chest x-ray which showed no new findings. There are chronic changes. These are reviewed. The patient had a CTA chest performed in August. Both the films and report are reviewed. ASSESSMENT AND PLAN: 1. Acute on chronic hypoxemic and hypercarbic respiratory failure. Arterial blood gas shows a chronic component in addition to acute. We will go ahead and put her on a BiPAP while asleep. Recommend arranging a Trilogy before discharge. The patient is agreeable to use BiPAP. The primary etiology of the patient's respiratory failure appears to be bronchospasm. 2. Chronic obstructive pulmonary disease exacerbation. She is still bronchospastic. I would significantly go up on the steroid dose, which appears to be primary therapy needed at this time. We will also continue with nebulized bronchodilators as well as budesonide as currently prescribed. The patient has pulmonary infiltrates on the CT chest performed in August. I do not see any obvious infiltrates on the chest x-rays now. I do intend to do a CT chest to [address] [address] CONSULTATION Name: SRIDHAR PENDLETON Room: [address] IN M.R.#: [id number] Admission: 10/22/20 Attend Phys: Scot Turner MD Discharge: Date of : 43 Report #: [id number] evaluate this further. I would do a D-dimer first and then decide as to whether to do this with or without IV dye. 3. DVT prophylaxis. 4. GI prophylaxis. Continue Protonix. 5. Hyperglycemia. We will order an insulin sliding scale while she is on high dose steroids. Thanks for this consultation. MD GINO Puckett/GUERRERO <ELECTRONICALLY SIGNED> By: Nimesh Gomez MD 10/29/20 1522 1705 [id number] Gomez MD /nt
--- NOTE | 2020-10-29 17:26 | CON ---
[address] [address] CONSULTATION Name: KEERTHISRIDHAR N Room: [address] IN M.R.#: [id number] Admission: 10/22/20 Attend Phys: Scot Turner MD Discharge: Date of : 43 Report #: [id number] THIS REPORT FOR: cc: Tyrone Merols MD, Matthew D MD Namin, Farid M. MD ~ DOC #: [id number] cc: MD Josselyn Khan [facility] DATE OF CONSULTATION: 10/29/2020 PCP: Tyrone Merlos MD Please note at the time of this dictation, the patient was seen and physically examined by myself. REASON FOR CONSULTATION: Abnormal chest CT, questionable achalasia. HISTORY OF PRESENT ILLNESS: This is a 75-year-old female who presented to the Emergency Room with cough and shortness of breath. She was seen then at that time, she thought she and caught a bug. She has a longstanding history of COPD, which she is on continuous oxygen of 2-3 liters all the time. The patient denies any difficulty swallowing. She states she did have some vomiting over the past week or so, but denies any difficulty with solids or liquids at this time. She is unable to recall for me if she has ever had an EGD or a colonoscopy done in the past. She denies any nausea, any vomiting, any abdominal discomfort. She states her bowels move daily, soft and formed without any evidence of any bright red blood or melena. ALLERGIES: PENICILLIN. MEDICATIONS: From home include potassium chloride, Cozaar, diltiazem, Lasix, sertraline and ProAir. PAST MEDICAL HISTORY: Hypertension, COPD, depression, CHF, seizures. PAST SURGICAL HISTORY: Negative. FAMILY HISTORY: Noncontributory. SOCIAL HISTORY: Denies any alcohol, tobacco, or illegal drug use. REVIEW OF SYSTEMS: A 12-point review of systems is essentially negative except what [place] [address] CONSULTATION Name: SRIDHAR PENDLETON Room: [address] IN [facility]#: [id number] Admission: 10/22/20 Attend Phys: Scot Turner MD Discharge: Date of : 43 Report #: [id number] PHYSICAL EXAMINATION: VITAL SIGNS: Temperature 37.2, pulse 82, respirations 17, blood pressure 129/62. HEART: Regular rate and rhythm. LUNGS: Diminished with a few expiratory wheezes bilaterally. ABDOMEN: Soft, positive bowel sounds in all 4 quadrants with no masses or tenderness noted. LABORATORY DATA: Hemoglobin is 10.1, white count 9.7, platelets 270. BUN is 20, GFR 61. LFTs are completely normal. Abdominal x-ray is normal. CT of the chest done on 10/26/2020 showed diffuse fluid distention of the entire esophagus. IMPRESSION: 1. Abnormal CT fluid-filled esophagus noted on 10/26/2020. 2. Acute respiratory failure. 3. Anemia, chronic. 4. Seizures. PLAN: 1. Barium swallow. 2. Depending on above results, may consider an EGD once her pulmonary status has improved. 3. Await findings of the above. Thank you for allowing us to participate in this patient's care. Please do not hesitate to call with any questions regarding this consult. MD JOESPH Dalton/BUBBA <ELECTRONICALLY SIGNED> By: Juliana James MD 10/29/20 1726 0749 [id number] James MD /nt
[2020-10-30 04:00] VITALS: BP 155/79
[2020-10-30 04:33] LABS: HEMATOCRIT 30.7 % (37.0-47.0); HEMOGLOBIN 10.2 gm/dL (12.0-15.0); MCH 29.6 pg (26.0-34.0); MCHC 33.2 g/dL (28.0-37.0); MCV 89.1 fL (80.0-100.0); MPV 9.3 fl. (7.2-11.1); NUCLEATED RBCS 0 /100WBC; PLATELET COUNT* 258 thou/uL (150-400); RBC 3.45 mil/uL (4.20-5.00); RDW-CV 14.1 % (10.5-14.5); WBC 6.6 thou/uL (4.0-11.0)
[2020-10-30 04:46] LABS: PREALBUMIN 19.9 mg/dL (18.0-35.7)
[2020-10-30 05:03] LABS: ALBUMIN 2.8 g/dL (3.4-5.0); CALCIUM 8.4 mg/dL (8.5-10.1); CREATININE 0.8 mg/dL (0.6-1.3); POTASSIUM 3.9 mmol/L (3.5-5.1); TOTAL BILIRUBIN 0.2 mg/dL (<0.1-1.0); TOTAL PROTEIN 6.5 g/dL (6.4-8.2)
[2020-10-30 05:44] LABS: ABSOLUTE MONOCYTES 0.2 thou/uL (0.0-1.2); ABSOLUTE NEUTROPHILS 5.4 thou/uL (1.6-8.1); PLATELET ESTIMATE ADEQUATE
[2020-10-30 05:45] LABS: ANISOCYTOSIS 1+; POIKILOCYTOSIS 1+
[2020-10-30 08:00] VITALS: BP 133/74
[2020-10-30 12:00] VITALS: BP 123/58
[2020-10-30 16:00] VITALS: BP 119/73
[2020-10-30 20:00] VITALS: BP 127/74
[2020-10-30 23:36] VITALS: BP 144/73
[2020-10-31 03:27] VITALS: BP 134/59
[2020-10-31 08:00] VITALS: BP 144/77
[2020-10-31 12:03] VITALS: BP 132/66
[2020-10-31 16:11] VITALS: BP 137/73
[2020-10-31] MEDS ORDERED: PROTONIX40 M2 PO (16:22)
[2020-10-31] MEDS ORDERED: REGLAN 10 MG TA10 MG PO (16:22)
[2020-10-31 19:45] VITALS: BP 144/83
[2020-11-01] VITALS: BP 127/70
[2020-11-01 04:43] LABS: ABSOLUTE LYMPHOCYTES 0.4 thou/uL (0.8-5.3); ABSOLUTE MONOCYTES 0.8 thou/uL (0.0-1.2); ABSOLUTE NEUTROPHILS 10.9 thou/uL (1.6-8.1); BASOPHILS 0.3 %; HEMATOCRIT 28.5 % (37.0-47.0); HEMOGLOBIN 9.5 gm/dL (12.0-15.0); LYMPHOCYTES 3.6 %; MCH 29.9 pg (26.0-34.0); MCHC 33.4 g/dL (28.0-37.0); MCV 89.7 fL (80.0-100.0); MONOCYTES 6.8 %; MPV 10.2 fl. (7.2-11.1); NUCLEATED RBCS 0 /100WBC; PLATELET COUNT* 222 thou/uL (150-400); POLYS 89.3 %; RBC 3.18 mil/uL (4.20-5.00); RDW-CV 14.3 % (10.5-14.5); WBC 12.2 thou/uL (4.0-11.0)
[2020-11-01 05:00] VITALS: BP 156/82
[2020-11-01 05:25] LABS: CALCIUM 8.5 mg/dL (8.5-10.1); CREATININE 0.8 mg/dL (0.6-1.3); MAGNESIUM 2.4 mg/dL (1.8-2.4); POTASSIUM 4.2 mmol/L (3.5-5.1)
[2020-11-01 07:50] VITALS: BP 141/69
[2020-11-01 15:44] VITALS: BP 141/69
[2020-11-01 16:00] VITALS: BP 116/61
== END 2020-11-01 18:15 | disposition home health service (06) | DRG 291 ==
LOC: M.ERS 09:14 → M.TBA-ER 11:57 → M.2W 11:57 → M.ICU 10-29 06:53 → M.2W 10-29 23:27
PROVIDERS: Emergency Medicine Emergency Medical Services; Internal Medicine; Internal Medicine Critical Care Medicine; Internal Medicine Gastroenterology; ADMIT Internal Medicine; ATTEND Internal Medicine
PROC: 0D758ZZ Dilation of Esophagus, Via Natural or Artificial Opening Endoscopic (ICD-10-PCS; principal; 2020-10-31)
DX: I11.0 Hypertensive heart disease with heart failure (principal); J96.21 Acute and chronic respiratory failure with hypoxia; J96.22 Acute and chronic respiratory failure with hypercapnia; J18.9 Pneumonia, unspecified organism; J44.1 Chronic obstructive pulmonary disease with (acute) exacerbation; J44.0 Chronic obstructive pulmonary disease with (acute) lower respiratory infection; I50.33 Acute on chronic diastolic (congestive) heart failure; F32.9 Major depressive disorder, single episode, unspecified; Z20.822 Contact with and (suspected) exposure to COVID-19; J45.909 Unspecified asthma, uncomplicated; R73.9 Hyperglycemia, unspecified; D64.9 Anemia, unspecified; G40.909 Epilepsy, unspecified, not intractable, without status epilepticus; K22.8 Other specified diseases of esophagus; K22.0 Achalasia of cardia; K44.9 Diaphragmatic hernia without obstruction or gangrene; Z98.0 Intestinal bypass and anastomosis status; Z88.0 Allergy status to penicillin